=== PATIENT | male | born 1955 | race Caucasian/White ===

== ENCOUNTER 2016-10-30 21:31 | Emergency (ER) | payer OTHER ==
[~2016-10-30] VITALS: Ht 177.8 cm; Wt 77.1 kg
--- NOTE | 2016-10-30 22:03 | ED SYNCOPE COMPLAINT ---
History of Present Illness General Chief Complaint: Syncope and Near-Syncope Stated Complaint: BIBA WITH SYNCOPE Source: patient, family, old records, EMS Exam Limitations: no limitations Vital Signs & Intake/Output Vital Signs & Intake/Output Vital Signs Date Time Temp Pulse Resp B/P Pulse O2 O2 Flow FiO2 Ox Delivery Rate 10/31 0232 96.9 70 18 103/64 97 Room Air 10/31 0059 97.0 74 18 106/58 97 Room Air 10/30 2259 96.7 72 20 101/56 97 Room Air 10/30 2237 96.2 71 20 98/57 98 Room Air 10/30 2147 Room Air 10/30 2139 96.9 70 18 97/60 95 Room Air ED Intake and Output 10/31 0000 10/30 1200 Intake Total 300 Output Total Balance 300 Intake, IV 300 Patient 170 lb Weight Allergies Coded Allergies: No Known Allergies (10/30/16) Reconcile Medications Levothyroxine Sodium (Synthroid) 25 MCG TABLET HYPOTHYROIDISM (Reported) Triage Note: PT BIBA FROM HOME S/P SYNCOPAL EPISODE AT HOME WHILE GOING TO THE BATHROOM. PER EMS WHEN THEY ARRIVED HE WAS ALERT AND SITTING IN LIVING ROOM. PT DENIES ANY CHEST PAIN, DIZZINESS, SOB, PAIN. Triage Nurses Notes Reviewed? yes Timing: single episode today Precipitating Factors: lightheadedness Context: became dizzy/fainted Episode Description: syncope Loss of Consciousness: prolonged (minutes) Associated Symptoms: dizziness, syncope, weakness HPI: Prior to admission patient was straining to move his bowels and developed abdominal cramping and loose stool felt dizzy and passed out. Family reports he was out for several minutes remaining seated on the toilet. He denies fever chills nausea vomiting chest pain shortness of breath headache dysuria rash bleeding previous episode. Past History Travel History Traveled to [place] past 21 day No Medical History Any Pertinent Medical History? see below for history Neurological: NONE EENT: NONE Cardiovascular: abnormal EKG with negative w/u by cardiology Respiratory: NONE Gastrointestinal: NONE Hepatic: NONE Renal: NONE Musculoskeletal: NONE Psychiatric: NONE Endocrine: hypothyroidism Blood Disorders: NONE Cancer(s): NONE AIR SAMPLING AND MONITORING/Reproductive: NONE Surgical History Surgical History: non-contributory Psychosocial History What is your primary language Bengali Tobacco Use: Never used ETOH Use: occasional use Family History Hx Contributory? No Review of Systems Review of Systems Constitutional: Reports: see HPI, weakness. EENTM: Reports: no symptoms. Respiratory: Reports: no symptoms. Cardiovascular: Reports: no symptoms. GI: Reports: see HPI, diarrhea. Genitourinary: Reports: no symptoms. Musculoskeletal: Reports: no symptoms. Skin: Reports: no symptoms. Neurological/Psychological: Reports: see HPI. All Other Systems: Reviewed and Negative Physical Exam Physical Exam General Appearance: well developed/nourished, alert, awake, anxious, thin Head: atraumatic, normal appearance Eyes: Bilateral: normal appearance, PERRL, EOMI. Ears, Nose, Throat: normal pharynx, normal ENT inspection Neck: normal inspection, supple, full range of motion, no midline tenderness Respiratory: normal breath sounds, chest non-tender, no respiratory distress, quiet respiration, lungs clear Cardiovascular: regular rate/rhythm, normal peripheral pulses, norml femoral pulses equa Gastrointestinal: normal bowel sounds, soft, non-tender, no organomegaly Back: normal inspection, normal range of motion, no vertebral tenderness Extremities: normal inspection, normal capillary refill, normal range of motion, no edema Psychiatric: awake, alert, oriented x 3 Cranial Nerves: normal hearing, normal speech, PERRL Coordination/Gait: normal finger to nose, normal gait Motor/Sensory: no motor/sensory deficits Reflexes: 2+: bicep (R), bicep (L). Skin: intact, normal color, warm/dry Lymphatic: no anterior cervical navin Core Measures ACS in differential dx? No CVA/TIA Diagnosis: No Severe Sepsis Present: No Septic Shock Present: No Progress Differential Diagnosis: AMI, drug induced syncope, orthostatic syncope, vasodepressor syncope Plan of Care: Orders Procedure Date/time Status TROPONIN LEVEL 10/31 0108 Complete Add-on Test (ER Only) 10/30 2249 Active URINE OSMOLALITY 10/30 2249 Complete URINALYSIS 10/30 2249 Complete TOTAL TRIODOTHYROXINE 10/30 2208 Complete SERUM OSMOLALITY 10/30 2208 Complete FREE T4 10/30 2208 Complete MISTAKE 10/30 2156 Active TSH REFLEX 10/30 2156 Complete TROPONIN LEVEL 10/30 2156 Complete MAGNESIUM 10/30 2156 Complete COMPREHENSIVE METABOLIC PANEL 10/30 2156 Complete CBC WITHOUT DIFFERENTIAL 10/30 2156 Complete EKG 10/30 2133 Active Laboratory Tests 10/31/16 0123: Troponin I < 0.01 10/31/16 0038: Urine Osmolality 287 L 10/31/16 0038: Urinalysis LIGHT H, Urine Color YEL, Urine Clarity CLEAR, Urine pH 6.0, Ur Specific [place] 1.015, Urine Protein TRACE H, Urine Ketones NEG, Urine Nitrite NEG, Urine Bilirubin NEG, Urine Urobilinogen 0.2, Ur Leukocyte Esterase NEG, Ur Microscopic SEDIMENT EXAMINED, Urine WBC 1-3 H, Ur Epithelial Cells FEW, Urine Bacteria FEW H, Hyaline Casts 1-3 H, Urine Hemoglobin NEG, Urine Glucose NEG 10/30/16 2209: Anion Gap 11, Estimated GFR > 60, BUN/Creatinine Ratio 12.5, Glucose 85, Serum Osmolality 298 H, Calcium 8.7, Magnesium 1.8, Total Bilirubin 0.3, AST 24, ALT 40, Alkaline Phosphatase 72, Troponin I < 0.01, Total Protein 6.5, Albumin 4.0, Globulin 2.5, Albumin/Globulin Ratio 1.6, Free T4 1.61, Total T3 0.95 L, TSH & T3 &Free T4 Intrp 9.610 H, CBC w Diff NO MAN DIFF REQ, RBC 3.64 L, MCV 93.7, MCH 31.8 H, RDW 13.0, MPV 6.0 L, Gran % 67.2, Lymphocytes % 21.5, Monocytes % 7.4, Eosinophils % 3.4, Basophils % 0.5, Absolute Granulocytes 5.3, Absolute Lymphocytes 1.7, Absolute Monocytes 0.6, Absolute Eosinophils 0.3, Absolute Basophils 0, PUBS MCHC 33.9 Initial ED EKG: normal axis, normal intervals, normal p-waves, normal QRS complex, normal sinus rhythm, nonspecific ST T wave chg, flipped t waves V1-3 Rhythm Strip: normal sinus rhythm Departure Departure Time of Disposition: 219 Disposition: HOME OR SELF CARE Condition: Stable Clinical Impression Primary Impression: Vasovagal syncope Secondary Impressions: Hyponatremia Referrals: PEDRO SADLER,SHELBY Hernandez (PCP/Family) Departure Forms: Customer Survey General Discharge Information RELEASE- WORK
[2016-10-30 22:20] LABS: ABSOLUTE BASOPHIL COUNT 0 /CUMM (0.0-0.2); ABSOLUTE EOSINOPHIL COUNT 0.3 /CUMM (0.0-0.7); ABSOLUTE GRANULOCYTE CT 5.3 /CUMM (1.4-6.5); ABSOLUTE LYMPH COUNT 1.7 /CUMM (1.2-3.4); ABSOLUTE MONOCYTE COUNT 0.6 /CUMM (0.10-0.60); BASOPHIL % 0.5 % (0.0-2.0); EOSINOPHIL % 3.4 % (0-5); GRANULOCYTE % 67.2 % (42.2-75.2); HEMATOCRIT 34.1 % (42-52); MEAN CORPUSCULAR HGB 31.8 PG (27.0-31.0); MEAN CORPUSCULAR HGB CONC 33.9 G/DL (33.0-37.0); MEAN CORPUSCULAR VOLUME 93.7 FL (80.0-94.0); PLATELET COUNT 339 /CUMM (130-400); RED BLOOD CELL CT 3.64 /CUMM (4.70-6.10); WHITE BLOOD CELL COUNT 7.8 /CUMM (4.8-10.8)
[2016-10-30] MEDS ORDERED: SYNTHROID25 MCG (23:00)
[2016-10-31 02:32] VITALS: BP 103/64
== END 2016-10-31 02:33 ==
LOC: ERH 21:31
PROVIDERS: Emergency Medicine
DX: R55 Syncope and collapse (principal); E87.1 Hypo-osmolality and hyponatremia; R42 Dizziness and giddiness; R53.1 Weakness; E03.9 Hypothyroidism, unspecified
CPT/HCPCS: 81001; 93005; 93010